=== PATIENT | female | born 1980 | race Caucasian/White ===

== ENCOUNTER 2019-10-18 08:53 | Emergency (ER) | payer SELFPAY ==
[~2019-10-18] VITALS: Ht 162.6 cm; Wt 59.0 kg
[2019-10-18] MEDS ORDERED: AZITHROMYCIN250 MG PO (09:41)
[2019-10-18] MEDS ORDERED: TYLENOL325 M2 PO (09:41)
--- NOTE | 2019-10-18 09:49 | Emergency Department Note ---
History of Present Illnes History of Present Illness Chief Complaint: COVID PUI History of Present Illness This is a 39 year old female arrived to the ED requesting a Covid swab. Chief Complaint Comment PATIENT IN FROM HOME WITH COMPLAINTS OF COUGH, FEVER, AND GENERAL MALAISE X 1 WEEK; O2 SATS 100% ON ROOM AIR, APPEARS IN NO DISTRESS, RESP EVEN AND NONLABORED Historian: Patient Arrival Mode: Car Onset (how long ago): day(s) Radiation: Reports non-radiation Onset quality: sudden Duration (how long): day(s) Timing of current episode: constant Progression: unchanged Chronicity: new Past Medical/Family History Physician Review I have reviewed the patient's past medical and family history. Any updates have been documented here. Past Medical History Recent Fever: Yes Clinical Suspicion of Infectio: Yes New/Unexplained Change in Ment: No Past Medical History: Anxiety, Depression Other Medical History: ENDOMETRIOSIS Past Surgical History: T&A Social History Smoking Cessation: Unknown if ever smoked Alcohol Use: None Any Illegal Drug Use: No Physically hurt or threatened: No Other Any Pre-Existing Lines (PICC,: No Review of Systems Review of Systems Constitutional: Reports chills, Reports fever EENTM: Reports no symptoms Cardiovascular: Reports no symptoms Respiratory: Reports as per HPI, Reports cough Gastrointestinal: Reports no symptoms Genitourinary: Reports no symptoms Musculoskeletal: Reports no symptoms Integumentary: Reports no symptoms Neurological: Reports no symptoms Psychological: Reports no symptoms Endocrine: Reports no symptoms Hematological/Lymphatic: Reports no symptoms Physical Exam Related Data Allergies: Coded Allergies: No Known Allergies (Unverified , 10/18/19) Triage Vital Signs Vital Signs Date Time Temp Pulse Resp B/P (MAP) Pulse Ox O2 Delivery O2 Flow Rate FiO2 10/18/19 09:03 98.6 96 20 127/73 100 Room Air Vital signs reviewed: Yes Physical Exam CONSTITUTIONAL Constitutional: Present well-developed, Present well-nourished HENT HENT: Present normocephalic, Present atraumatic, Present oropharynx clear/moist, Present nose normal HENT L/R: Present left ext ear normal, Present right ext ear normal EYES Eyes: Reports PERRL, Reports conjunctivae normal NECK Neck: Present ROM normal PULMONARY Pulmonary: Present effort normal, Present breath sounds normal CARDIOVASCULAR Cardiovascular: Present regular rhythm, Present heart sounds normal, Present capillary refill normal, Present normal rate GASTROINTESTINAL Abdominal: Present soft, Present nontender, Present bowel sounds normal GENITOURINARY Genitourinary: Present exam deferred SKIN Skin: Present warm, Present dry MUSCULOSKELETAL Musculoskeletal: Present ROM normal NEUROLOGICAL Neurological: Present alert, Present oriented x 3, Present no gross motor or sensory deficits PSYCHOLOGICAL Psychological: Present mood/affect normal, Present judgement normal Results Laboratory Laboratory Laboratory Tests Test 10/18/19 09:28 Assessment & Plan Medical Decision Making MDM 39-year-old female arrives to the ED with concerns of coronavirus exposure, 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 Assessment & Plan Final Impression: (1) COVID-19 Depart Disposition: HOME, SELF-CARE Last Vital Signs Date Time Temp Pulse Resp B/P (MAP) Pulse Ox O2 Delivery O2 Flow Rate FiO2 10/18/19 09:03 98.6 96 20 127/73 100 Room Air Home Meds Active Scripts Acetaminophen (Tylenol) 325 Mg Capsule, 650 MG PO Q8HR PRN for ELEVATED TEMPERATURE, #14 Prov:MYNOR HUBBARD DO 10/18/19 Azithromycin (Z-CHAPARRO) 250 Mg Tablet, 250 MG PO UD, #1 UDPKT Z-Pack Prov:MYNOR HUBBARD DO 10/18/19 MYNOR HUBBARD, Oct 18, 2019 09:49
== END 2019-10-18 09:45 | disposition home or self-care (01) ==
LOC: ER 09:04
DX: U07.1 COVID-19 (principal); R50.9 Fever, unspecified; R05 Cough; F41.9 Anxiety disorder, unspecified; N80.9 Endometriosis, unspecified
CPT/HCPCS: 99283; U0002